=== PATIENT | male | born 1950 | race Caucasian/White ===

== ENCOUNTER 2017-04-16 09:10 | Day surgery (SDC) | payer OTHER ==
[~2017-04-16] VITALS: Ht 172.7 cm; Wt 80.0 kg
[~2017-04-16 09:10] MED LIST: 0.9% Sodium Chloride 1,000 ML IV SCH; ASPI-973 PO; BUSP15TA3 PO; LEVO137T24 PO; MELO-253 PO; PRAV40TA PO; SERT50TA PO; Sodium Chloride LOK Flush 10 mL Syringe IV PRN; ZLP10T PO; fentaNYL-PF 50 mCg/mL 2 mL Inj IVPUSH PRN
[2017-04-16 09:31] VITALS: BP 134/85; PULSE 61; RESP 18; O2SAT 98
[2017-04-16] MEDS ORDERED: CHOL100043 PO (09:43)
[2017-04-16 11:06] VITALS: BP 108/67; PULSE 56; RESP 16; O2SAT 97
[2017-04-16 11:16] VITALS: BP 109/67; PULSE 65; RESP 16; O2SAT 97
[2017-04-16 11:25] VITALS: BP 121/80; PULSE 59; RESP 16; O2SAT 96
--- NOTE | 2017-04-16 13:40 | ENDO ---
[address] [address] ENDOSCOPY PROCEDURE PATIENT: BLANKA BLACK : 1950 MR#: [id number] ADMIT: 04/16/2017 JOB ID: [id number] DATE: 04/16/2017 PROCEDURE: Colonoscopy. INDICATION: Screening. Patient's ASA classification is two. Mallampati score is two. MEDICATIONS: Versed 5 mg, fentanyl 100 mcg. INSTRUMENT USED: PCF H 180 AL. PREPARATION QUALITY: Poor. PROCEDURE DETAILS: After informed consent was obtained, the patient was brought into the GI suite, where he was placed on oxygen via nasal cannula and monitored with continuous pulse oximeter, telemetry, and blood pressure monitoring. A time-out was performed, then he was placed in the left lateral decubitus position and medications were administered for sedation. Digital rectal exam was performed, which was unremarkable. Colonoscope was then inserted into the rectum and advanced under direct visualization to the cecum, which was identified by the presence of the ileocecal valve and appendiceal orifice. Once the cecum was reached, the colonoscope was withdrawn back into the rectum as the mucosa and lumen were examined. In the rectum, retroflexion was performed. Following retroflexion, the remaining air in the rectum was suctioned and the procedure was completed. FINDINGS: There was solid stool in large amounts in the ascending colon, and then scattered throughout the transverse colon. Visualization was poor. No large lesions seen, however smaller polyps may have been missed. IMPRESSION: Poor prep. RECOMMENDATIONS: Repeat colonoscopy with a two-day prep. COMPLICATIONS: None. ESTIMATED BLOOD LOSS: Zero.
== END 2017-04-16 23:59 | disposition home or self-care (01) ==
LOC: END 09:10
PROVIDERS: ATTEND Internal Medicine Gastroenterology
DX: Z12.11 Encounter for screening for malignant neoplasm of colon (principal); E03.9 Hypothyroidism, unspecified; E78.00 Pure hypercholesterolemia, unspecified; E78.5 Hyperlipidemia, unspecified; F41.9 Anxiety disorder, unspecified; Z79.82 Long term (current) use of aspirin
CPT/HCPCS: G0121; G0500; J2250; J3010; J7030

== ENCOUNTER → 2017-06-21 | Day surgery (SDC) | payer OTHER ==
[~2017-06-21] VITALS: Ht 172.7 cm; Wt 80.0 kg
[2017-06-21 10:37] VITALS: BP 145/98; PULSE 66; RESP 16; O2SAT 96
[2017-06-21 11:21] VITALS: BP 114/69; PULSE 58; RESP 14; O2SAT 97
[2017-06-21 11:31] VITALS: BP 108/65; PULSE 77; O2SAT 97
[2017-06-21 11:41] VITALS: BP 121/78; PULSE 58; O2SAT 99
--- NOTE | 2017-06-21 21:29 | ENDO ---
[address] [address] ENDOSCOPY PROCEDURE PATIENT: BLANKA BLACK : 1950 MR#: [id number] ADMIT: 06/21/2017 JOB ID: [id number] PROCEDURE: Colonoscopy. INDICATIONS: Screening. Patient's ASA classification is II. Mallampati score is II. MEDICATIONS: Versed at 6 mg, fentanyl 100 mcg. INSTRUMENT USED: PCF-H190AL. Prep quality was good. PROCEDURE DETAILS: After informed consent was obtained, the patient was brought into the GI suite, where he was placed on oxygen via nasal cannula and monitored with continuous pulse oximeter, telemetry, and blood pressure monitoring. A time-out was performed. Then, he was placed in a left lateral decubitus position and medications were administered for sedation. Digital rectal exam was performed which was unremarkable. The colonoscope was then inserted into the rectum and advanced under direct visualization to the cecum, which was identified by the presence of the ileocecal valve and appendiceal orifice. Once the cecum was reached, colonoscope was withdrawn back into the rectum as the mucosa and lumen were examined. In the rectum, retroflexion was performed. Following retroflexion, remaining air in the rectum was suctioned, and procedure was completed. FINDINGS: 1. In the transverse colon, there was an approximately 4 mm sessile polyp that was removed with a cold snare. 2. Scattered diverticula were seen throughout the left side of the colon. IMPRESSION: 1. Transverse colon polyp. 2. Left-sided diverticulosis. RECOMMENDATIONS: 1. Repeat colonoscopy in five years, sooner if symptoms should dictate. 2. Fiber rich diet. COMPLICATIONS: None. ESTIMATED BLOOD LOSS: Less than 5 mL.
--- NOTE | 2017-06-23 13:18 | PATH ---
SURGICAL PATHOLOGY Attending Physician:Danny Miller CASE STATUS: Signed Out PATIENT NAME: BLANKA BLACK PID: [id number] : 1950 DATE COLLECTED:06/21/2017 21:56 SPECIMEN: Colon, Polyp CLINICAL HISTORY: 1). TRANSVERSE COLON POLYPS FINAL DIAGNOSIS: Transverse Colon Polyp, Biopsy: Tubular adenoma. ICD10: D12.3 GROSS DESCRIPTION: The specimen is received in one formalin filled container labeled with the patient's name, sublabeled "transverse colon polyp" and consists of a less than 0.1 CM portion of tissue which is entirely submitted in one cassette. 06/21/2017DC ICD-9 CODES: CPT CODES: 1: 04538 Electronically Signed Out Tyler Noguera MD, Ph.D. [facility] [address], [place] [address] Technical component performed at [facility], [facility] [address], [place], [address]
== END | disposition home or self-care (01) ==
LOC: END 00:44
PROVIDERS: ATTEND Internal Medicine Gastroenterology
DX: Z12.11 Encounter for screening for malignant neoplasm of colon (principal); D12.3 Benign neoplasm of transverse colon; K57.30 Diverticulosis of large intestine without perforation or abscess without bleeding; E03.9 Hypothyroidism, unspecified; E78.5 Hyperlipidemia, unspecified; E55.9 Vitamin D deficiency, unspecified; F41.9 Anxiety disorder, unspecified; Z79.82 Long term (current) use of aspirin
CPT/HCPCS: 45385; G0500; J2250; J3010; J7030